=== PATIENT | male | born 1950 | race Two or more races ===

== ENCOUNTER 2018-09-28 18:56 | Inpatient (IN) | payer MEDICARE ==
[2018-09-27 23:33] VITALS: BP 138/87
[~2018-09-28] VITALS: Ht 177.8 cm; Wt 70.3 kg
[2018-09-28] MEDS ORDERED: OXYC40TA50 PO (19:07)
[2018-09-28] MEDS ORDERED: MORP30TA PO (19:07)
[2018-09-28] MEDS ORDERED: NITROGLYCERIN OINT 1 GM PACKET TP ONE ×2 (19:30→19:36)
[2018-09-28] MEDS ORDERED: MORPHINE SULFATE 2 MG/1 ML DISP.SYRIN IV ONE ×2 (19:30→23:15)
[2018-09-28] MEDS ORDERED: ONDANSETRON 4 MG/2 ML VIAL IV ONE (19:30)
[2018-09-28] MEDS ORDERED: MORPHINE SULFATE 2 MG/1 ML DISP.SYRIN ONE (19:36)
[2018-09-28] MEDS ORDERED: ONDANSETRON 4 MG/2 ML VIAL ONE (19:36)
[2018-09-28 19:48] LABS: BASOPHILS % (AUTO) 0.4 % (0.0-2.0); EOSINOPHILS # (AUTO) 0.1 K/uL (0.0-0.7); EOSINOPHILS % (AUTO) 2.2 % (0.0-7.0); HEMATOCRIT 33.1 % (36.7-47.1); HEMOGLOBIN 11.1 g/dL (12.5-16.3); LYMPHOCYTES # (AUTO) 0.9 K/uL (20.0-40.0); LYMPHOCYTES % (AUTO) 18.6 % (20.5-51.5); MEAN CORPUSCULAR HEMOGLOBIN 28.8 uug (23.8-33.4); MEAN CORPUSCULAR HGB CONC 33 g/dL (32.5-36.3); MEAN CORPUSCULAR VOLUME 86.2 fL (73.0-96.2); MONOCYTES # (AUTO) 0.5 K/uL (2.0-10.0); MONOCYTES % (AUTO) 10.3 % (0.0-11.0); NEUTROPHILS # (AUTO) 3.2 K/uL (1.8-8.9); NEUTROPHILS % (AUTO) 68.5 % (38.5-71.5); PLATELET COUNT (AUTO) 184 K/uL (152-348); RED BLOOD CELL COUNT(AUTO) 3.84 MIL/uL (4.06-5.63); WHITE BLOOD COUNT (AUTO) 4.7 K/uL (3.6-10.2)
[2018-09-28 19:57] LABS: POTASSIUM 4.7 mmol/L (3.5-5.1)
[2018-09-28 20:09] LABS: BILIRUBIN,DIRECT 0.2 mg/dL (0.0-0.2); BILIRUBIN,TOTAL 0.6 mg/dL (0.2-1.0); TOTAL PROTEIN, SERUM 7.6 g/dL (6.4-8.2)
--- NOTE | 2018-09-28 20:31 | NUR ---
EPIC paged for panel call.
--- NOTE | 2018-09-28 20:50 | NUR ---
Dr. Baumann on phone with MERCEDES Coley
--- NOTE | 2018-09-28 21:20 | NUR ---
Per ER MD, patient will stay in ER until second troponin lab draw.
--- NOTE | 2018-09-28 22:30 | NUR ---
LAB at bedside for blood draw
--- NOTE | 2018-09-28 23:10 | NUR ---
HAYLEY called per [employer] request for update for Brijesh LONG
[2018-09-28] MEDS ORDERED: Z GUARD REMEDY PASTE 57 GM TUBE TOP PRN (23:30)
[2018-09-28] MEDS ORDERED: ONDANSETRON 4 MG/2 ML VIAL IV PRN (23:30)
[2018-09-28] MEDS ORDERED: MAGNESIUM HYDROXIDE 30 ML LIQUID UDC PO PRN (23:30)
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
--- NOTE | 2018-09-28 23:35 | NUR ---
Pt. admitted to Tele , under care of Cristopher Coley Belongs List completed
[2018-09-28] MEDS ORDERED: ASPIRIN 325 MG TABLET PO ONE (23:45)
[2018-09-28] MEDS ORDERED: NITROGLYCERIN 0.4 MG/TAB BOTTLE SL PRN (23:45)
[2018-09-29] MEDS ORDERED: ENOXAPARIN SODIUM 80 MG/0.8 ML DISP.SYRIN SQ ONE
[2018-09-29 03:25] VITALS: BP 136/68
[2018-09-29] MEDS: MORPHINE SULFATE 2 MG/1 ML DISP.SYRIN IV PRN ×3 (04:20→11:58)
[2018-09-29 06:15] LABS: BASOPHILS % (AUTO) 1.1 % (0.0-2.0); EOSINOPHILS # (AUTO) 0.2 K/uL (0.0-0.7); EOSINOPHILS % (AUTO) 4.6 % (0.0-7.0); HEMATOCRIT 33.9 % (36.7-47.1); HEMOGLOBIN 11.3 g/dL (12.5-16.3); LYMPHOCYTES # (AUTO) 1.3 K/uL (20.0-40.0); MEAN CORPUSCULAR HEMOGLOBIN 28.9 uug (23.8-33.4); MEAN CORPUSCULAR HGB CONC 34 g/dL (32.5-36.3); MEAN CORPUSCULAR VOLUME 86.3 fL (73.0-96.2); MONOCYTES # (AUTO) 0.4 K/uL (2.0-10.0); MONOCYTES % (AUTO) 11.9 % (0.0-11.0); NEUTROPHILS # (AUTO) 1.5 K/uL (1.8-8.9); NEUTROPHILS % (AUTO) 44.4 % (38.5-71.5); PLATELET COUNT (AUTO) 185 K/uL (152-348); RED BLOOD CELL COUNT(AUTO) 3.93 MIL/uL (4.06-5.63); WHITE BLOOD COUNT (AUTO) 3.4 K/uL (3.6-10.2)
[2018-09-29 06:33] LABS: MAGNESIUM 1.9 mg/dL (1.8-2.4); PHOSPHOROUS 4.8 mg/dL (2.5-4.9); POTASSIUM 4.6 mmol/L (3.5-5.1)
--- NOTE | 2018-09-29 07:00 | NUR ---
Patient is resting in bed, A/O 4, no complain at the moment , no chest pain, no sob Safety reinforced, cont plan of care
[2018-09-29 07:16] LABS: THYROID STIMULATING HORMONE 1.256 mIU/mL (0.358-3.740)
[2018-09-29] MEDS ORDERED: ENOXAPARIN SODIUM 40 MG/0.4 ML DISP.SYRIN SQ SCH (09:00)
[2018-09-29 10:56] VITALS: BP 150/63
[2018-09-29 14:30] VITALS: BP 136/64
--- NOTE | 2018-09-29 15:00 | NUR ---
Discharged: Patient is A/O 4, no distress, no complains Information is given with hard copy Went downstairs by wheelchair with accounts payable manager
[2018-09-30] MEDS ORDERED: ASPIRIN 81 MG TAB.CHEW PO SCH (09:00)
== END 2018-09-29 15:00 | disposition home or self-care (01) | DRG 313 ==
LOC: ER 18:57 → TELE 21:02
PROVIDERS: ADMIT Nurse Practitioner Acute Care; ATTEND Nurse Practitioner Acute Care
DX: R07.89 Other chest pain (principal); E11.65 Type 2 diabetes mellitus with hyperglycemia; J44.9 Chronic obstructive pulmonary disease, unspecified; F17.210 Nicotine dependence, cigarettes, uncomplicated; D63.8 Anemia in other chronic diseases classified elsewhere; I25.2 Old myocardial infarction; I10 Essential (primary) hypertension; F43.10 Post-traumatic stress disorder, unspecified; Z90.81 Acquired absence of spleen; Z76.5 Malingerer [conscious simulation]
CPT/HCPCS: 36415; 70030-TC; 71045; 83735; 84100; 84443; 85025; 85730; 93005; A4663; G0378; J1650; J2270; J2405

== ENCOUNTER 2018-11-27 21:29 | Inpatient (IN) | payer MEDICARE ==
[~2018-11-27] VITALS: Ht 177.8 cm; Wt 75.1 kg
[2018-11-27] MEDS ORDERED: HYDR-3326 PO (21:47)
[2018-11-27] MEDS ORDERED: METOPROLO PO (21:47)
[2018-11-27] MEDS ORDERED: ALBU8.5H8 IH (21:48)
[2018-11-27] MEDS ORDERED: IV NORMAL SALINE 1000 ML BAG IV ONE (22:15)
[2018-11-27] MEDS ORDERED: LEVOFLOXACIN 750MG/D5W 150 ML IV ONE ×2 (22:15→22:28)
[2018-11-27 22:35] LABS: BASOPHILS # (AUTO) 0.1 K/uL (0.0-8.0); BASOPHILS % (AUTO) 1.3 % (0.0-2.0); EOSINOPHILS # (AUTO) 0.2 K/uL (0.0-0.7); EOSINOPHILS % (AUTO) 3.1 % (0.0-7.0); HEMOGLOBIN 11.9 g/dL (12.5-16.3); LYMPHOCYTES # (AUTO) 1.5 K/uL (20.0-40.0); LYMPHOCYTES % (AUTO) 24.4 % (20.5-51.5); MEAN CORPUSCULAR HEMOGLOBIN 27.9 uug (23.8-33.4); MEAN CORPUSCULAR HGB CONC 33 g/dL (32.5-36.3); MEAN CORPUSCULAR VOLUME 84.2 fL (73.0-96.2); MONOCYTES # (AUTO) 0.5 K/uL (2.0-10.0); MONOCYTES % (AUTO) 8.3 % (0.0-11.0); NEUTROPHILS % (AUTO) 62.9 % (38.5-71.5); PLATELET COUNT (AUTO) 223 K/uL (152-348); RED BLOOD CELL COUNT(AUTO) 4.28 MIL/uL (4.06-5.63); WHITE BLOOD COUNT (AUTO) 6.3 K/uL (3.6-10.2)
[2018-11-27 22:57] LABS: CREATININE 0.9 mg/dL (0.6-1.3); POTASSIUM 4.3 mmol/L (3.5-5.1)
[2018-11-27 23:01] LABS: BILIRUBIN,DIRECT 0.2 mg/dL (0.0-0.2); BILIRUBIN,TOTAL 0.5 mg/dL (0.2-1.0); TOTAL PROTEIN, SERUM 7.9 g/dL (6.4-8.2)
[2018-11-28 02:30] VITALS: BP 151/86
[2018-11-28] MEDS ORDERED: Z GUARD REMEDY PASTE 57 GM TUBE TOP PRN (02:30)
[2018-11-28] MEDS ORDERED: MAGNESIUM HYDROXIDE 30 ML LIQUID UDC PO PRN (02:30)
[2018-11-28] MEDS ORDERED: ALBUTEROL SULFATE 8 GM HFA.AER.AD IH PRN (02:30)
[2018-11-28] MEDS ORDERED: HYDROCODONE/APAP 5-325MG TABLET PO PRN (02:30)
[2018-11-28] MEDS ORDERED: ONDANSETRON 4 MG/2 ML VIAL IV PRN (02:30)
--- NOTE | 2018-11-28 02:30 | NUR ---
Patient transfered to [place] in stable condition.
[2018-11-28] MEDS ORDERED: ALBUTEROL SULFATE 2.5 MG/3 ML NEBU NEB PRN (02:45)
[2018-11-28] MEDS ORDERED: LIDOCAINE 5% PATCH TD PRN (03:00)
[2018-11-28] MEDS: IV NS 1000 ML 1,000 ML IV PRN ×2 (03:00→13:52)
--- NOTE | 2018-11-28 03:00 | NUR ---
RECEIVED PATIENT VIA GURNEY FROM ER. PATIENT IS A/O X4. EASILY AGITATED. PATIENT REFUSING IVF. LINSEED OIL ORDER FILLER NOTIFIED. CALL LIGHT IN REACH. ALL NEEDS ATTENDED. WILL CONTINUE TO MONITOR AND ASSESS.
--- NOTE | 2018-11-28 06:36 | NUR ---
PATIENT AWAKE IN BED. STILL REFUSING IVF. WILL CONTINUE TO MONITOR,.
[2018-11-28 06:38] LABS: BASOPHILS # (AUTO) 0.1 K/uL (0.0-8.0); BASOPHILS % (AUTO) 1.1 % (0.0-2.0); EOSINOPHILS # (AUTO) 0.3 K/uL (0.0-0.7); EOSINOPHILS % (AUTO) 6.7 % (0.0-7.0); HEMATOCRIT 32.5 % (36.7-47.1); HEMOGLOBIN 10.8 g/dL (12.5-16.3); LYMPHOCYTES # (AUTO) 1.3 K/uL (20.0-40.0); LYMPHOCYTES % (AUTO) 28.2 % (20.5-51.5); MEAN CORPUSCULAR HEMOGLOBIN 28.4 uug (23.8-33.4); MEAN CORPUSCULAR HGB CONC 33 g/dL (32.5-36.3); MEAN CORPUSCULAR VOLUME 85.3 fL (73.0-96.2); MONOCYTES # (AUTO) 0.4 K/uL (2.0-10.0); MONOCYTES % (AUTO) 9.4 % (0.0-11.0); NEUTROPHILS # (AUTO) 2.5 K/uL (1.8-8.9); NEUTROPHILS % (AUTO) 54.6 % (38.5-71.5); PLATELET COUNT (AUTO) 199 K/uL (152-348); RED BLOOD CELL COUNT(AUTO) 3.81 MIL/uL (4.06-5.63); WHITE BLOOD COUNT (AUTO) 4.6 K/uL (3.6-10.2)
[2018-11-28 06:58] LABS: MAGNESIUM 1.6 mg/dL (1.8-2.4); PHOSPHOROUS 3.5 mg/dL (2.5-4.9); POTASSIUM 3.9 mmol/L (3.5-5.1)
[2018-11-28 07:10] LABS: THYROID STIMULATING HORMONE 0.972 mIU/mL (0.358-3.740)
--- NOTE | 2018-11-28 07:35 | NUR ---
PATIENT RECEIVED ASLEEP ON BED AAOX4 NO ACUTE DISTRESS NOTED. IV ACCESS ON THE RIGHT AC #10 INTACT AND PATENT, CONTINUES TO REFUSE IVF. APPEARS COMFORTABLE. CALL LIGHT WITHIN REACH. WILL CONTINUE TO MONITOR CLOSELY.
[2018-11-28] MEDS ORDERED: IPRATROPIUM BROMIDE 0.5 MG/2.5 ML NEBU NEB PRN (08:00)
[2018-11-28] MEDS: HYDROMORPHONE 1 MG/1 ML DISP.SYRIN IV PRN ×4 (08:48→21:44)
[2018-11-28] MEDS: ENOXAPARIN SODIUM 40 MG/0.4 ML DISP.SYRIN SQ SCH (08:51)
[2018-11-28] MEDS: NICOTINE 14 MG/24HR PATCH TD SCH (08:52)
[2018-11-28] MEDS ORDERED: DEXTROSE 50% 50 ML DISP.SYRIN IV PRN (11:15)
[2018-11-28 11:30] VITALS: BP 158/87
[2018-11-28] MEDS: MAGNESIUM SULFATE/D5W 100 ML IV SCH ×2 (12:04→12:58)
[2018-11-28] MEDS: BLOOD SUGAR DIAGNOSTIC 1 EACH STRIP VI SCH ×3 (12:07→21:37)
[2018-11-28 16:12] VITALS: BP 150/82
[2018-11-28 17:13] LABS: *BILIRUBIN,URIN NEGATIVE (NEGATIVE); *BLOOD, URINE NEGATIVE (NEGATIVE); *CLARITY,URINE CLEAR (CLEAR); *COLOR,URINE LIGHT YELLOW (YELLOW); *KETONES,URINE NEGATIVE (NEGATIVE); *UROBILINOGEN,URINE 0.2 E.U./dl (NORMAL); LEUKOCYTE ESTERASE ,URINE NEGATIVE (NEGATIVE); NITRITE, URINE NEGATIVE (NEGATIVE); PH,URINE 6.5 (5.0-8.0); UGLUCOSE NEGATIVE (NEGATIVE)
[2018-11-28 17:29] LABS: RBC,URINE 0-3 /HPF (0-3); WBC,URINE 0-3 /HPF (0-3)
[2018-11-28] MEDS: INSULIN REGULAR, HUMAN 300 UNIT/3 ML VIAL SQ PRN (17:35)
--- NOTE | 2018-11-28 18:50 | NUR ---
patient noted with infiltrated IV on the left AC #20, removed IV access. tried to reinsert new IV SITE X 2, was unsuccessful, will endorse to shift manager.
[2018-11-28 20:00] VITALS: BP 156/78
--- NOTE | 2018-11-28 20:00 | NUR ---
RECEIVED PATIENT SLEEPING IN BED BUT EASILY AROUSABLE. PATIENT COMPLAINED OF 8/10 PAIN WHICH WAS RELIEVED BY PRESCRIBED 0.5 mg DILAUDID VIA IV PUSH. BED IN LOW POSITION AND LOCKED. 2 SIDE RAILS UP AND LOCKED. SNACK PROVIDED REQUESTED. CALL LIGHT WITHIN REACH AT ALL TIMES. WILL CONTINUE TO MONITOR.
[2018-11-28] MEDS: LEVOFLOXACIN 750MG/D5W 750 MG in PREMIXED 1 EACH IV SCH (21:45)
[2018-11-29] MEDS: HYDROMORPHONE 1 MG/1 ML DISP.SYRIN IV PRN ×6 (01:57→22:26)
[2018-11-29 04:53] VITALS: BP 147/83
--- NOTE | 2018-11-29 05:28 | NUR ---
PATIENT SLEPT INTERMITTENTLY THROUGHOUT NIGHT. ALL COMPLAINTS OF PAIN TREATED ORDERED AND TOLERATED WELL. VS WNL AND PATIENT IS STABLE. ALL NURSING NEEDS MET PROMPTLY. IV SITE INTACT AND PATENT WITH PRESCRIBED IV FLUIDS RUNNING ORDERED. ALL SAFETY AND FALL PRECAUTION MEASURES IN PLACE. CALL LIGHT WITHIN REACH AT ALL TIMES.
[2018-11-29] MEDS: BLOOD SUGAR DIAGNOSTIC 1 EACH STRIP VI SCH ×4 (06:14→21:56)
[2018-11-29] MEDS: INSULIN REGULAR, HUMAN 300 UNIT/3 ML VIAL SQ PRN ×3 (07:51→22:22)
[2018-11-29] MEDS: IV NS 1000 ML 1,000 ML IV PRN (08:04)
--- NOTE | 2018-11-29 08:05 | NUR ---
RECEIVED RESIDENT AWAKE IN BED, RESTING COMFORTABLY. IV SITE PATENT AND INTACT. VS WNL AND PATIENT IS STABLE. ALL SAFETY MEASURES IN PLACE. CALL LIGHT WITHIN REACH AT ALL TIMES. WILL CONTINUE TO MONITOR.
[2018-11-29] MEDS: ENOXAPARIN SODIUM 40 MG/0.4 ML DISP.SYRIN SQ SCH (09:00)
[2018-11-29] MEDS: NICOTINE 14 MG/24HR PATCH TD SCH (09:00)
[2018-11-29 09:30] LABS: BASOPHILS # (AUTO) 0.1 K/uL (0.0-8.0); EOSINOPHILS # (AUTO) 0.2 K/uL (0.0-0.7); EOSINOPHILS % (AUTO) 3.7 % (0.0-7.0); HEMATOCRIT 36.1 % (36.7-47.1); HEMOGLOBIN 11.9 g/dL (12.5-16.3); LYMPHOCYTES # (AUTO) 1.3 K/uL (20.0-40.0); LYMPHOCYTES % (AUTO) 21.1 % (20.5-51.5); MEAN CORPUSCULAR HEMOGLOBIN 27.9 uug (23.8-33.4); MEAN CORPUSCULAR HGB CONC 33 g/dL (32.5-36.3); MEAN CORPUSCULAR VOLUME 84.4 fL (73.0-96.2); MONOCYTES # (AUTO) 0.5 K/uL (2.0-10.0); MONOCYTES % (AUTO) 8.3 % (0.0-11.0); NEUTROPHILS # (AUTO) 4.1 K/uL (1.8-8.9); NEUTROPHILS % (AUTO) 65.9 % (38.5-71.5); PLATELET COUNT (AUTO) 210 K/uL (152-348); RED BLOOD CELL COUNT(AUTO) 4.28 MIL/uL (4.06-5.63); WHITE BLOOD COUNT (AUTO) 6.2 K/uL (3.6-10.2)
[2018-11-29 09:33] LABS: CREATININE 0.8 mg/dL (0.6-1.3); MAGNESIUM 1.6 mg/dL (1.8-2.4); POTASSIUM 3.8 mmol/L (3.5-5.1)
--- NOTE | 2018-11-29 10:50 | NUR ---
SS consultation requested: SW met with patient this AM. Patient is a 68 year old male, homeless. Patient was in bed, in his assigned hospital room, receptive to meeting with this SW. Patient is alert, oriented x 4. Patient stated he is from [place], and has been in [place] for 4-5 months. Patient has been living in a motel, however stated not having enough money to be able to continue maintaining a motel room. SW discussed placement options with the patient, and patient was receptive to this. SW informed the patient that she will refer the patient to the associate merchandise planner, who will come to meet with the patient in order to further discuss placement options/discharge planning with the patient. Patient expressed agreement. SW met with manager case management Eleanor and Nadine and discussed above with them. Eleanor stated that they will follow-up with the patient regarding discharge planning. Patient does not have a secondary insurance, and Eleanor stated that patient has already been referred to Bibi Mckinney, patient senior account representative at [employer], [facility], for [employer] eligibility screening. No further SS interventions needed at this time.
[2018-11-29 11:37] VITALS: BP 161/85
--- NOTE | 2018-11-29 11:50 | NUR ---
PATIENT NOTED WITH BP 161/85 MA 80. NOTIFIED ULISSES ESCALANTE HARMONICA MAKER, ORDERED CLONIDINE 0.1 MG PO Q8HPRN FOR SBP >160, CARRIED OUT.
[2018-11-29] MEDS: CLONIDINE HCL 0.1 MG TABLET PO PRN ×2 (12:05→20:33)
[2018-11-29] MEDS: MAGNESIUM SULFATE/D5W 100 ML IV SCH ×2 (12:07→13:06)
--- NOTE | 2018-11-29 12:12 | NUR ---
PATIENT'S BP 165/82, ADMINISTERED CLONIDINE 0.1 MF Q8HPRN, WILL CONTINUE TO MONITOR CLOSELY.
[2018-11-29] MEDS ORDERED: METO25TA6 PO (14:16)
[2018-11-29 15:43] VITALS: BP 143/75
--- NOTE | 2018-11-29 18:43 | NUR ---
PATIENT STABLE THROUGHOUT SHIFT. NO SOB NOTED, WITH PRODUCTIVE COUGH, SMALL YELLOWISH SPUTUM NOTED. IVF INFUSING WELL. BP STABLE PAIN MANAGED BY DILAUDID 1MG IV Q4HPRN, LAST ADMINISTERED AT 1829. COMFORT MEASURES PROVIDED. ALL NEEDS ATTENDED AND ANTICIPATED. WILL ENDORSE ACCORDINGLY.
[2018-11-29 20:00] VITALS: BP 166/86
[2018-11-29] MEDS: LEVOFLOXACIN 750MG/D5W 750 MG in PREMIXED 1 EACH IV SCH (21:52)
[2018-11-30] MEDS: IV NS 1000 ML 1,000 ML IV PRN ×2 (00:11→17:25)
[2018-11-30] MEDS: HYDROMORPHONE 1 MG/1 ML DISP.SYRIN IV PRN ×6 (02:34→22:47)
--- NOTE | 2018-11-30 04:35 | NUR ---
PATIENT STABLE THROUGHOUT SHIFT. ALL DUE MEDICATIONS PROVIDED ORDERED AND TOLERATED WELL. IV ANTIBIOTICS PROVIDED ORDERED WITH NO ADVERSE EFFECTS OR REACTION. COMPLAINTS OF PAIN MET PROMPTLY WITH PRESCRIBED MEDICATION. FALL AND SAFETY PRECAUTION MEASURES IN PLACE. CALL LIGHT WITHIN REACH AT ALL TIMES. WILL REPORT ACCORDINGLY TO NEXT SHIFT.
[2018-11-30 04:49] VITALS: BP 166/113
[2018-11-30] MEDS: CLONIDINE HCL 0.1 MG TABLET PO PRN ×2 (05:01→13:08)
[2018-11-30] MEDS: BLOOD SUGAR DIAGNOSTIC 1 EACH STRIP VI SCH ×4 (06:28→20:55)
[2018-11-30 07:34] LABS: CREATININE 0.8 mg/dL (0.6-1.3); MAGNESIUM 1.6 mg/dL (1.8-2.4); POTASSIUM 4.8 mmol/L (3.5-5.1)
--- NOTE | 2018-11-30 07:40 | NUR ---
PATIENT RECEIVED ASLEEP ON BED AAOX4 NO ACUTE DISTRESS NOTED. IV ACCESS ON THE RIGHT FA #20 INTACT AND PATENT, RUNNING NS @ 75 CC/HR, INFUSING WELL. BLOOD SUGAR THIS AM 114, NO COVERAGE NEEDED. APPEARS COMFORTABLE. CALL LIGHT WITHIN REACH. WILL CONTINUE TO MONITOR CLOSELY.
[2018-11-30 08:00] LABS: BASOPHILS # (AUTO) 0.1 K/uL (0.0-8.0); BASOPHILS % (AUTO) 1.1 % (0.0-2.0); EOSINOPHILS # (AUTO) 0.3 K/uL (0.0-0.7); EOSINOPHILS % (AUTO) 4.6 % (0.0-7.0); HEMATOCRIT 34.9 % (36.7-47.1); HEMOGLOBIN 11.7 g/dL (12.5-16.3); LYMPHOCYTES # (AUTO) 1.2 K/uL (20.0-40.0); LYMPHOCYTES % (AUTO) 20.1 % (20.5-51.5); MEAN CORPUSCULAR HEMOGLOBIN 28.4 uug (23.8-33.4); MEAN CORPUSCULAR HGB CONC 33 g/dL (32.5-36.3); MONOCYTES # (AUTO) 0.5 K/uL (2.0-10.0); MONOCYTES % (AUTO) 8.8 % (0.0-11.0); NEUTROPHILS % (AUTO) 65.4 % (38.5-71.5); PLATELET COUNT (AUTO) 217 K/uL (152-348); RED BLOOD CELL COUNT(AUTO) 4.11 MIL/uL (4.06-5.63); WHITE BLOOD COUNT (AUTO) 6.2 K/uL (3.6-10.2)
[2018-11-30] MEDS: MAGNESIUM SULFATE/D5W 100 ML IV SCH ×2 (08:10→09:22)
[2018-11-30] MEDS: NICOTINE 14 MG/24HR PATCH TD SCH (09:00)
[2018-11-30] MEDS: ENOXAPARIN SODIUM 40 MG/0.4 ML DISP.SYRIN SQ SCH (09:00)
[2018-11-30 11:13] VITALS: BP 165/88
[2018-11-30] MEDS: INSULIN REGULAR, HUMAN 300 UNIT/3 ML VIAL SQ PRN ×2 (12:10→17:14)
[2018-11-30 15:23] VITALS: BP_SYST 135; BP_SYST 151; BP_DIAS 75; BP_DIAS 77
[2018-11-30 19:57] VITALS: BP 155/78
--- NOTE | 2018-11-30 20:02 | NUR ---
RECEIVED PATIENT AWAKE AND ALERT IN BED. VS WNL AND PATIENT IS STABLE. IV SITE PATENT AND INTACT. SAFETY AND FALL PRECAUTION MEASURES IN PLACE. BED IN LOW POSITION AND LOCKED, 2 SIDE RAILS UP AND LOCKED. CALL LIGHT WITHIN REACH AT ALL TIMES. WILL CONTINUE TO MONITOR.
[2018-11-30] MEDS ORDERED: LEVOFLOXACIN 750 MG TABLET PO SCH (22:00)
--- NOTE | 2018-11-30 22:49 | NUR ---
APPLIED LIDODERM PATCH TO CENTER OF LOWER BACK FOR PAIN RELIEF.
[2018-12-01] MEDS: HYDROMORPHONE 1 MG/1 ML DISP.SYRIN IV PRN ×3 (02:52→10:50)
[2018-12-01] MEDS: CLONIDINE HCL 0.1 MG TABLET PO PRN ×2 (03:10→11:38)
--- NOTE | 2018-12-01 03:12 | NUR ---
PATIENT COMPLAINING OF 'SEEING STARS' AND THINKS HIS BLOOD PRESSURE IS HIGH. BLOOD PRESSURE ASSESSED AND FOUND TO BE 178/74. PRN CATAPRES 0.1mg GIVEN PO PER ORDER. WILL CONTINUE TO MONITOR.
--- NOTE | 2018-12-01 04:15 | NUR ---
BLOOD PRESSURE IS NOW 169/76, WILL CONTINUE TO MONITOR.
[2018-12-01 04:45] VITALS: BP_SYST 102; BP_SYST 169; BP_DIAS 59; BP_DIAS 76
--- NOTE | 2018-12-01 04:59 | NUR ---
PATIENT SLEPT INTERMITTENTLY THROUGHOUT NIGHT. BP WAS ELEVATED AND TREATED WITH PRN CLONIDINE 0.1mg, DIRECTED, AND TOLERATED WELL. COMPLAINTS OF PAIN WERE ADDRESSED PROMPTLY WITH PRESCRIBED DILAUDID AT 1MG VIA IV PUSH, DIRECTED. ALL NURSING NEEDS ADDRESSED PROMPTLY. IV PATENT AND INTACT WITH IV NS RUNNING AT 75mL/HR. ALL FALL AND SAFETY PRECAUTIONS IN PLACE. BED IN LOWEST POSITION AND LOCKED. 2 SIDE RAILS UP AND IN LOCKED POSITION. PATIENT HAS NO COMPLAINTS OF ACUTE DISTRESS DURING THIS SHIFT. WILL PROVIDE REPORT TO ONCOMING SHIFT ACCORDINGLY.
[2018-12-01] MEDS: BLOOD SUGAR DIAGNOSTIC 1 EACH STRIP VI SCH ×2 (06:40→11:38)
[2018-12-01] MEDS: IV NS 1000 ML 1,000 ML IV PRN (06:49)
[2018-12-01 06:52] LABS: BASOPHILS % (AUTO) 0.7 % (0.0-2.0); EOSINOPHILS # (AUTO) 0.3 K/uL (0.0-0.7); EOSINOPHILS % (AUTO) 5.3 % (0.0-7.0); HEMATOCRIT 34.7 % (36.7-47.1); HEMOGLOBIN 11.6 g/dL (12.5-16.3); LYMPHOCYTES # (AUTO) 1.4 K/uL (20.0-40.0); LYMPHOCYTES % (AUTO) 22.1 % (20.5-51.5); MEAN CORPUSCULAR HEMOGLOBIN 28.2 uug (23.8-33.4); MEAN CORPUSCULAR HGB CONC 33 g/dL (32.5-36.3); MEAN CORPUSCULAR VOLUME 84.6 fL (73.0-96.2); MONOCYTES # (AUTO) 0.6 K/uL (2.0-10.0); MONOCYTES % (AUTO) 8.8 % (0.0-11.0); NEUTROPHILS # (AUTO) 3.9 K/uL (1.8-8.9); NEUTROPHILS % (AUTO) 63.1 % (38.5-71.5); PLATELET COUNT (AUTO) 229 K/uL (152-348); WHITE BLOOD COUNT (AUTO) 6.2 K/uL (3.6-10.2)
--- NOTE | 2018-12-01 07:00 | NUR ---
received report from product assembler nurse, patient in bed awake, no distress noted at this time, bed in low position, side rails up x2, call light in reach.
[2018-12-01 07:11] LABS: MAGNESIUM 1.6 mg/dL (1.8-2.4); POTASSIUM 4.2 mmol/L (3.5-5.1)
[2018-12-01] MEDS ORDERED: MAGNESIUM OXIDE 400 MG TABLET PO ONE (08:45)
[2018-12-01] MEDS: NICOTINE 14 MG/24HR PATCH TD SCH (10:02)
[2018-12-01 10:15] VITALS: BP 146/81
[2018-12-01] MEDS ORDERED: LEVO750T21 PO (10:18)
[2018-12-01] MEDS ORDERED: INSU100V28 SQ (10:18)
[2018-12-01] MEDS ORDERED: Blood Sugar Diagnostic VI (10:18)
[2018-12-01] MEDS ORDERED: METF-440 PO (10:21)
[2018-12-01 11:20] VITALS: BP 160/78
[2018-12-01 11:38] VITALS: BP 160/78
--- NOTE | 2018-12-01 12:00 | NUR ---
BP elevated above 160 systolic. Patient was given clonidine.
--- NOTE | 2018-12-01 13:45 | NUR ---
Patient was given discharge instructions, IV removed and report called to [facility] re[facility]. No distress at the time of discharge, all needs met. Patient transported via ambulance and all belongings accounted for.
== END 2018-12-01 13:50 | DRG 190 ==
LOC: ER 21:31 → MEDSURG3 11-28 02:19
PROVIDERS: ADMIT Nurse Practitioner Acute Care; ATTEND Nurse Practitioner Acute Care
DX: J44.0 Chronic obstructive pulmonary disease with (acute) lower respiratory infection (principal); J15.9 Unspecified bacterial pneumonia; J20.9 Acute bronchitis, unspecified; F17.210 Nicotine dependence, cigarettes, uncomplicated; F43.10 Post-traumatic stress disorder, unspecified; E11.65 Type 2 diabetes mellitus with hyperglycemia; D63.8 Anemia in other chronic diseases classified elsewhere; E83.42 Hypomagnesemia; I25.2 Old myocardial infarction; Z90.49 Acquired absence of other specified parts of digestive tract; I25.10 Atherosclerotic heart disease of native coronary artery without angina pectoris; G89.29 Other chronic pain; M54.5 Low back pain; I10 Essential (primary) hypertension; Z90.81 Acquired absence of spleen; Z91.19 Patient's noncompliance with other medical treatment and regimen; Z87.01 Personal history of pneumonia (recurrent); Z59.0 Homelessness
CPT/HCPCS: 36415; 70030-TC; 71045; 83605; 83735; 84100; 84443; 85025; 85730; 87040; 87070; 87086; 87400; 93005; 94664; A4663; G0378; J1170; J1650; J1815; J1956; J3475; J3490; J3590; J7030

== ENCOUNTER 2018-12-05 14:29 | Inpatient (IN) | payer MEDICARE ==
[~2018-12-05] VITALS: Ht 177.8 cm; Wt 72.6 kg
[~2018-12-05 14:29] MED LIST: ALBU8.5H8 IH; HYDR-3326 PO; LEVO750T21 PO; METF-440 PO; METO25TA6 PO
--- NOTE | 2018-12-05 14:42 | NUR ---
Pt out of ER for Ct.
[2018-12-05] MEDS ORDERED: BISA10SU61 RC (14:48)
[2018-12-05] MEDS ORDERED: MAGN400O6 PO (14:48)
--- NOTE | 2018-12-05 15:01 | NUR ---
ER Md spoke to Gertrude LONG regarding pt's plan of care. Pt back from Ct, resting in bed.
[2018-12-05 15:41] LABS: BASOPHILS # (AUTO) 0.1 K/uL (0.0-8.0); EOSINOPHILS # (AUTO) 0.2 K/uL (0.0-0.7); EOSINOPHILS % (AUTO) 2.5 % (0.0-7.0); HEMATOCRIT 38.2 % (36.7-47.1); HEMOGLOBIN 12.8 g/dL (12.5-16.3); LYMPHOCYTES # (AUTO) 1.5 K/uL (20.0-40.0); LYMPHOCYTES % (AUTO) 23.5 % (20.5-51.5); MEAN CORPUSCULAR HEMOGLOBIN 28.2 uug (23.8-33.4); MEAN CORPUSCULAR HGB CONC 33 g/dL (32.5-36.3); MEAN CORPUSCULAR VOLUME 84.5 fL (73.0-96.2); MONOCYTES # (AUTO) 0.6 K/uL (2.0-10.0); MONOCYTES % (AUTO) 9.2 % (0.0-11.0); NEUTROPHILS # (AUTO) 4.1 K/uL (1.8-8.9); NEUTROPHILS % (AUTO) 63.8 % (38.5-71.5); PLATELET COUNT (AUTO) 227 K/uL (152-348); RED BLOOD CELL COUNT(AUTO) 4.52 MIL/uL (4.06-5.63); WHITE BLOOD COUNT (AUTO) 6.5 K/uL (3.6-10.2)
[2018-12-05 15:47] LABS: CREATININE 0.9 mg/dL (0.6-1.3); POTASSIUM 4.1 mmol/L (3.5-5.1)
[2018-12-05 15:59] LABS: BILIRUBIN,DIRECT 0.2 mg/dL (0.0-0.2); BILIRUBIN,TOTAL 0.6 mg/dL (0.2-1.0); TOTAL PROTEIN, SERUM 7.2 g/dL (6.4-8.2)
[2018-12-05 17:15] VITALS: BP 138/82
[2018-12-05] MEDS ORDERED: METFORMIN HCL 500 MG TABLET PO SCH (17:45)
[2018-12-05] MEDS ORDERED: ACETAMINOPHEN 325 MG TABLET PO PRN (17:45)
[2018-12-05] MEDS ORDERED: HYDROMORPHONE 2 MG/1 ML DISP.SYRIN IV PRN (17:45)
[2018-12-05] MEDS ORDERED: ALBUTEROL SULFATE 8 GM HFA.AER.AD IH PRN (17:45)
[2018-12-05] MEDS ORDERED: ZOLPIDEM 5 MG TABLET PO PRN (17:45)
[2018-12-05] MEDS ORDERED: BISACODYL 10 MG SUPP.RECT RC PRN (17:45)
[2018-12-05] MEDS ORDERED: ONDANSETRON 4 MG/2 ML VIAL IV PRN (17:45)
[2018-12-05] MEDS ORDERED: DEXTROSE 50% 50 ML DISP.SYRIN IV PRN (17:45)
[2018-12-05] MEDS ORDERED: ALBUTEROL SULFATE 2.5 MG/3 ML NEBU NEB PRN (18:00)
[2018-12-05] MEDS: ENOXAPARIN SODIUM 40 MG/0.4 ML DISP.SYRIN SQ SCH (18:49)
[2018-12-05] MEDS ORDERED: HYDROMORPHONE 2 MG/1 ML DISP.SYRIN IM PRN (19:00)
--- NOTE | 2018-12-05 19:51 | NUR ---
Rec'd pt in bed awake watching TV. No s/s of acute distress noted. A&Ox4. Status post Dialudid 2mg IM for 10/10 generalized pain. Per pt pain is now at 5/10. Pt eating tuna and reg milk. Cooperative at this time. Surrendered cigarettes, placed in contraband locker. Pending midline insertions placement. Pt made aware and agreeable at this time. Discussed plan of care for pain management and safety. Verbalized understanding. All safety precautions in place at this time. Will cont to monitor.
[2018-12-05 20:00] VITALS: BP 165/80
--- NOTE | 2018-12-05 20:00 | NUR ---
Status post midline insertion to R AC 18g by midline nurse. Pt katharine procedure well. No s/s of complication to site. Dressing in place and intact. Will start IVF as ordered.
[2018-12-05] MEDS: IV NS 1000 ML 1,000 ML IV PRN (20:29)
[2018-12-05 20:30] VITALS: BP 149/85
[2018-12-05] MEDS: INSULIN REGULAR, HUMAN 300 UNIT/3 ML VIAL SQ PRN (20:46)
[2018-12-05] MEDS: BLOOD SUGAR DIAGNOSTIC 1 EACH STRIP VI SCH (21:09)
--- NOTE | 2018-12-05 21:11 | NUR ---
Obtained T.O. from MERCEDES Buckley to change Dilaudid 2mg IM back to IV now that pt has midline in place. CIRCULATION ANALYST agreed. T.O. read back and verified. Pt made aware.
[2018-12-05] MEDS: HYDROMORPHONE 2 MG/1 ML DISP.SYRIN IV PRN (22:31)
[2018-12-05] MEDS ORDERED: ZOLPIDEM 5 MG TABLET PO ONE (23:30)
[2018-12-06] MEDS: HYDROMORPHONE 2 MG/1 ML DISP.SYRIN IV PRN ×3 (02:40→10:36)
[2018-12-06 04:00] VITALS: BP 171/84
--- NOTE | 2018-12-06 04:17 | NUR ---
Noted pt with elevated BP of 171/84 84. Low back pain at 04/23. Rec'd Dilaudid 2mg IV at 0240. Second Ambien dose ineffective. Pt unable to fall asleep. No PRN BP med on file. Metoprolol 25mg PO scheduled for 0900. Relayed to Rey Sahni and obtained new order for Hydralazine 25mg PO Q4hr PRN for SBP >165 and Trazodone 100mg PO x1 dose. Telephone order read back and verified. Pt made aware.
[2018-12-06] MEDS: hydrALAZINE HCL 25 MG TABLET PO PRN ×3 (04:31→20:47)
[2018-12-06] MEDS: TRAZODONE 100 MG TABLET PO ONE ×2 (04:31→04:53)
[2018-12-06] MEDS: BLOOD SUGAR DIAGNOSTIC 1 EACH STRIP VI SCH ×4 (06:34→22:30)
[2018-12-06 06:56] VITALS: BP 164/88
[2018-12-06] MEDS: METFORMIN HCL 500 MG TABLET PO SCH ×2 (08:00→17:01)
[2018-12-06] MEDS: METOPROLOL TARTRATE 25 MG TABLET PO SCH ×2 (08:00→16:13)
[2018-12-06 08:27] LABS: BASOPHILS % (AUTO) 0.3 % (0.0-2.0); EOSINOPHILS # (AUTO) 0.3 K/uL (0.0-0.7); HEMATOCRIT 37.9 % (36.7-47.1); HEMOGLOBIN 12.5 g/dL (12.5-16.3); LYMPHOCYTES # (AUTO) 1.6 K/uL (20.0-40.0); LYMPHOCYTES % (AUTO) 25.9 % (20.5-51.5); MEAN CORPUSCULAR HEMOGLOBIN 27.9 uug (23.8-33.4); MEAN CORPUSCULAR HGB CONC 33 g/dL (32.5-36.3); MEAN CORPUSCULAR VOLUME 84.9 fL (73.0-96.2); MONOCYTES # (AUTO) 0.6 K/uL (2.0-10.0); NEUTROPHILS # (AUTO) 3.8 K/uL (1.8-8.9); NEUTROPHILS % (AUTO) 59.8 % (38.5-71.5); PLATELET COUNT (AUTO) 262 K/uL (152-348); RED BLOOD CELL COUNT(AUTO) 4.47 MIL/uL (4.06-5.63); WHITE BLOOD COUNT (AUTO) 6.4 K/uL (3.6-10.2)
[2018-12-06 08:38] LABS: CREATININE 0.8 mg/dL (0.6-1.3); MAGNESIUM 1.7 mg/dL (1.8-2.4); PHOSPHOROUS 4.3 mg/dL (2.5-4.9)
[2018-12-06] MEDS: IV NS 1000 ML 1,000 ML IV PRN (08:54)
[2018-12-06] MEDS ORDERED: MAGNESIUM OXIDE 400 MG TABLET PO ONE (11:30)
[2018-12-06] MEDS: INSULIN REGULAR, HUMAN 300 UNIT/3 ML VIAL SQ PRN (11:50)
[2018-12-06 12:18] VITALS: BP 157/95
[2018-12-06 15:54] VITALS: BP 177/89
[2018-12-06] MEDS: ENOXAPARIN SODIUM 40 MG/0.4 ML DISP.SYRIN SQ SCH (17:02)
[2018-12-06] MEDS: METHOCARBAMOL 500 MG TABLET PO SCH (17:26)
[2018-12-06] MEDS ORDERED: TOPI25TA PO (18:15)
[2018-12-06] MEDS ORDERED: HYDR-3326 PO (18:15)
[2018-12-06] MEDS ORDERED: METH500T6 PO (18:15)
[2018-12-06] MEDS ORDERED: NICO1PAT44 TP (18:17)
[2018-12-06 20:00] VITALS: BP 151/76
--- NOTE | 2018-12-06 20:00 | NUR ---
Report received from the day nurse. patient is pending a DC at 2029. Comfort and safety provided
[2018-12-06] MEDS: HYDROCODONE/APAP 5-325MG TABLET PO PRN (20:48)
[2018-12-06] MEDS ORDERED: TOPIRAMATE 25 MG TABLET PO SCH (21:00)
--- NOTE | 2018-12-06 21:00 | NUR ---
Transportation is with the patient SBP is above 150 and trending up. Hydralazine and Nimitz given. SBP is above 190 and not improving. Transportation is not taking the patient unless SBP is below 150. MERCEDES Loredo was notified, ordered 10 mg Hydralazine once PO. Metoprolol routine was given. SBP is still around 186. One time Hydralazine 10mg given. Patient is sleeping intermittently. No signs of acute distress noted.Comfort and safety provided.
[2018-12-06] MEDS ORDERED: hydrALAZINE HCL 10 MG TABLET PO ONE (21:30)
[2018-12-06] MEDS ORDERED: METOPROLOL TARTRATE 50 MG TABLET PO SCH (21:30)
[2018-12-06] MEDS ORDERED: METOPROLOL TARTRATE 50 MG TABLET PO ONE (21:30)
--- NOTE | 2018-12-06 23:39 | NUR ---
SBP is trending around 155, ambulance was called in. Transportation can only come at 0100 and facility will not accept at this hour, rescheduled for 0500. Alannah Loredo was notified that patient is staying on the unit until 0500.
[2018-12-07] MEDS: METHOCARBAMOL 500 MG TABLET PO SCH (00:37)
[2018-12-07 04:04] VITALS: BP 151/81
[2018-12-07] MEDS: HYDROCODONE/APAP 5-325MG TABLET PO PRN (04:10)
[2018-12-07] MEDS: hydrALAZINE HCL 25 MG TABLET PO PRN (04:11)
[2018-12-07 04:49] VITALS: BP 156/74
--- NOTE | 2018-12-07 05:45 | NUR ---
Ambulance is on the floor. Report given. Patient was released.
[2018-12-07] MEDS ORDERED: METOPROLOL TARTRATE 50 MG TABLET PO SCH (09:00)
[2018-12-07] MEDS ORDERED: NICOTINE 21 MG/24HR PATCH TD SCH (09:00)
[2018-12-07] MEDS ORDERED: AMLODIPINE 5 MG TABLET PO SCH (09:00)
== END 2018-12-07 05:45 | DRG 552 ==
LOC: ER 14:29 → MEDSURG3 16:51
PROVIDERS: ADMIT Nurse Practitioner Acute Care; ATTEND Nurse Practitioner Acute Care
DX: M48.061 Spinal stenosis, lumbar region without neurogenic claudication (principal); F11.20 Opioid dependence, uncomplicated; M47.816 Spondylosis without myelopathy or radiculopathy, lumbar region; M96.1 Postlaminectomy syndrome, not elsewhere classified; M25.78 Osteophyte, vertebrae; Z98.1 Arthrodesis status; D63.8 Anemia in other chronic diseases classified elsewhere; E11.65 Type 2 diabetes mellitus with hyperglycemia; F17.210 Nicotine dependence, cigarettes, uncomplicated; F43.10 Post-traumatic stress disorder, unspecified; E83.42 Hypomagnesemia; I25.2 Old myocardial infarction; G89.4 Chronic pain syndrome; Z90.49 Acquired absence of other specified parts of digestive tract; Z90.81 Acquired absence of spleen; Z74.09 Other reduced mobility; J44.9 Chronic obstructive pulmonary disease, unspecified; Z91.19 Patient's noncompliance with other medical treatment and regimen; Z87.01 Personal history of pneumonia (recurrent); Z91.81 History of falling; Z79.84 Long term (current) use of oral hypoglycemic drugs
CPT/HCPCS: 36415; 70030-TC; 71045; 72131; 83605; 83735; 84100; 85025; 85651; 85730; 93005; A4663; G0378; J1170; J1650; J1815; J2405; J7030